=== PATIENT | female | born 1980 | race Hispanic/Latino ===

== ENCOUNTER 2022-06-25 06:55 | Day surgery (SDC) | payer OTHER ==
[2022-06-22 16:16] LABS: Absolute Lymphocytes (CBC) 2.2 K/uL (0.7-4.9); Hematocrit 41.4 % (36.0-45.0); Lymphocytes % 27.4 % (15.3-44.8); MCV 84.2 fL (80-100); MPV 9.3 fL (7.6-11.3); RBC Red Blood Cell Count 4.92 M/uL (3.86-4.86)
--- NOTE | 2022-06-22 16:29 | RAD REPORT ---
EXAM DESCRIPTION: RAD - Chest Pa And Lat (2 Views) - 06/22/2022 4:15 pm CLINICAL HISTORY: pre op pending hernia surgery COMPARISON: CHEST PA AND LAT 2 VIEW dated 10/13/2014 FINDINGS: Lines: None. Lungs: No evidence of edema or pneumonia. Pleural: No significant pleural effusions or pneumothorax. Cardiac: The heart size is within normal limits. Mediastinum: Within normal limits. Bones: No acute fractures. Other: None IMPRESSION: No acute cardiopulmonary disease.
[2022-06-22 16:30] LABS: Potassium 3.8 mmol/L (3.5-5.1)
[2022-06-25] MEDS: Ringers Lactate 1,000 ML IV ONE ×2 (07:15→08:07)
[2022-06-25] MEDS ORDERED: dexAMETHasone 10 MG/ML VIAL ONE (08:13)
[2022-06-25] MEDS ORDERED: FENTANYL CITR 100 MCG/2 ML ONE (08:13)
[2022-06-25] MEDS ORDERED: propofoL 200 MG/20 ML VIAL IV ONE (08:13)
[2022-06-25] MEDS ORDERED: LIDOCAINE 2% MPF 5 ML VIAL ONE (08:13)
[2022-06-25] MEDS ORDERED: ROCURONIUM 50 MG/5 ML VIAL IV ONE (08:13)
[2022-06-25] MEDS ORDERED: ONDANSETRON 4 MG/2 ML VIAL ONE (08:14)
[2022-06-25] MEDS ORDERED: KETOROLAC 30 MG/ML INJ ONE (08:14)
[2022-06-25] MEDS ORDERED: MIDAZOLAM HCL 2 MG/2 ML INJ ONE (08:14)
[2022-06-25] MEDS ORDERED: CEFAZOLIN SODIUM 1 GM/VIAL ONE (08:30)
[2022-06-25] MEDS ORDERED: GLYCOPYRROLATE 0.2 MG/ML SYR ONE (09:20)
[2022-06-25] MEDS ORDERED: NEOSTIGMINE 1 MG/ML -5 ML ONE (09:20)
--- NOTE | 2022-06-25 09:22 | P.BOP ---
Preoperative diagnosis: tender incarcerated ventral supraumbilical hernia Postoperative diagnosis: same Primary procedure: Laparoscopic repair of tender incarcerated ventral hernia 3x3cm Estimated blood loss: <10cc Specimen: sac Findings: incarcerated omentum Anesthesia: General Complications: None Drain(s): Other (ventralex mesh) Transferred to: Recovery Room Condition: Good
[2022-06-25 09:41] VITALS: O2SAT 100
[2022-06-25 10:26] VITALS: BP 117/91; TEMP 97.3
[2022-06-25 10:26] LABS: Urine Specific Gravity/Preg >1.030 (1.005-1.030)
[2022-06-25] MEDS ORDERED: HYDROCODONE/APAP 7.5/325 MG TAB ONE (11:33)
--- NOTE | 2022-06-25 19:12 | OP ---
Date of Procedure: 06/25/2022 Surgeon: Bj Shah MD Preoperative Diagnosis: Tender incarcerated ventral supraumbilical hernia. Postoperative Diagnosis: Tender incarcerated ventral supraumbilical hernia. Procedure: Laparoscopic repair of tender incarcerated ventral hernia 3 x 3 cm. Estimated Blood Loss: Less than 10 cc. Specimen: Hernia sac. Findings: Incarcerated omentum. Anesthesia: General plus local. Implant: Ventralex mesh. Indications: This is a case of a 41-year-old patient who comes to us with an incarcerated ventral he rnia just above the supraumbilical region. The benefits, alternatives, and risks of laparoscopic pos sible open repair with possible mesh include, but are not limited to infection, bleeding, damage to a djacent structures, anesthesia complication, recurrence, [place], and . She also understands this ma y not relieve any symptoms and she might need more than one surgical intervention. She also understa nd we might be using a mesh in that area. So pros and cons of mesh were discussed with the patient a nd all the questions answered to her satisfaction. She has signed a consent. Procedure In Detail: The patient was brought to the operating room and placed in supine position. A nesthesia was done without complication. Abdominal area was prepped and draped in a sterile fashion. Local anesthetic was applied followed by a curvilinear incision in the supraumbilical area. Incisi on was carried down until we have a hernia sac. We held the content of it. We opened the hernia sac and noticed incarcerated omentum with some adhesions to it. It was viable so we removed the adhesio ns and after fully inspecting and making sure there was no bleeding, we were able to reduce the coretat nt and the omentum. The hernia sac was removed. The fascial edges looks frayed so we decided to use mesh in that region to reinforce the area. Vicryl #1 was placed in a [id number] fashion multip le times around the fascia edges after they were trimmed. I then placed a Aries trocar, obtained pn eumoperitoneum and then after that, I placed a 5 mm trocar on left and right side. We once again lap aroscopically made sure that the area of omentum looked intact with no bleeding. The fascial edges l ooks nice and clean. At that moment, I proceeded to select a Ventralex mesh to cover the area and at least overlap the area by 3 cm. The Ventralex was placed through the midline incision. The strap c gamaliel through the incision. We used SorbaFix to secure the mesh anteriorly and cut the straps and then closed the hernia defect in a [id number]-ru-rcuzn fashion with #1 Vicryl multiple times that gave me air seal and further fix the mesh to the anterior abdominal wall circumferentially with the help of Sorb aFix. At that moment, I proceeded to carefully deflate pneumoperitoneum, removed the trocars and duane sed the subcutaneous tissue with 3-0 chromic and the skin in subcuticular fashion with 3-0 chromic an d Steri-Strips on top. Sponge count and instrument counts were correct. The patient tolerated the p rocedure well. The patient was sent to recovery in stable condition. BONNIE/ANNE Voice ID: [id number] Report ID: [id number]
--- NOTE | 2022-06-25 19:12 | DS ---
Date of Discharge: 06/25/2022 Diagnosis: Tender incarcerated ventral supraumbilical hernia Procedure: Laparoscopic repair of tender incarcerated ventral hernia with mesh. Disposition: Home. Condition: Stable. Followup: In my office in 1 week. Call for appointment at [phone]. Discharge Instructions: Keep area dry for 48 hours, then may shower. Keep Steri-Strips intact. BONNIE/ANNE Voice ID: [id number] Report ID: [id number]
--- NOTE | 2022-06-26 17:25 | EKG ---
Test Date: 2022-06-22 Test Time: 15:58:07 Interventionist: LEI MEASUREMENT RESULTS: Intervals: Rate: 72 MT: 148 QRSD: 84 QT: 362 QTc: 396 Orange: P: 53 MT: 148 QRS: 15 T: 11 INTERPRETIVE STATEMENTS: Normal sinus rhythm Low voltage QRS Cannot rule out Anterior infarct, age undetermined Abnormal ECG No previous ECG available for comparison Electronically Signed On 06-26-22 17:16:27 [employer] by Amadeo Rosales
== END 2022-06-25 11:15 | disposition home or self-care (01) ==
LOC: OR 06:55
PROVIDERS: ATTEND Surgery
PROC: 0WUF4JZ Supplement Abdominal Wall with Synthetic Substitute, Percutaneous Endoscopic Approach (ICD-10-PCS; principal; 2022-06-25 08:30)
DX: K42.0 Umbilical hernia with obstruction, without gangrene (principal)
CPT/HCPCS: 93005; 85025; 80048; 36415; 81025; 88302; 71046; 49594; J2704; J2001; J2250; J3010; J1100; J2710; J7120; J2405; J0690